=== PATIENT | male | born 1950 | race Caucasian/White ===

== ENCOUNTER → 2017-07-01 | Outpatient (CLI) | payer MEDICARE, OTHER | END | disposition home or self-care (01) | LOC: HKI 14:08 | DX: M25.552 Pain in left hip (principal); G89.29 Other chronic pain; Z72.0 Tobacco use; Z85.46 Personal history of malignant neoplasm of prostate | CPT/HCPCS: G0463 ==

== ENCOUNTER → 2017-07-15 | Outpatient (CLI) | payer MEDICARE, OTHER | END | disposition home or self-care (01) | LOC: HKI 14:46 | DX: M79.652 Pain in left thigh (principal); M25.552 Pain in left hip; F41.9 Anxiety disorder, unspecified; Z85.46 Personal history of malignant neoplasm of prostate ==